=== PATIENT | female | born 1990 | race Caucasian/White ===

== ENCOUNTER 2022-11-29 07:14 | Outpatient (CLI) | payer OTHER, SELFPAY ==
--- NOTE | 2022-11-29 07:15 | CRLHL7_ITS ---
For Patients: As a result of the Cures Act, medical imaging exams and procedure reports are released immediately into your electronic medical record. You may view this report before your referring provider. If you have questions, please contact your health care provider. INDICATION: First trimester scan, establish dates. COMPARISON: None. TECHNIQUE: Real-time christina-scale imaging of the pelvis was performed. FINDINGS: Sonographic imaging demonstrates a single living intrauterine gestation. The embryo demonstrates a regular cardiac rate measuring 152 beats per minute. The embryo`s crown-rump length measurement of 3.6 cm corresponds to a gestational age of 10 weeks 3 days with a sonographic due date of 06/24/2023. There is a normal-appearing yolk sac. There are no gross abnormalities noted within the embryo at this early state of development. The gestational sac has a normal appearance. There is no evidence of a perigestational hemorrhage. The amount of fluid within the sac appears appropriate for gestational age. The cervix is closed. The myometrium appears normal. The ovaries are of normal size. Corpus luteal cyst left ovary. There are no suspicious fluid collections noted in the cul-de-sac. IMPRESSION: Normal first trimester OB ultrasound exam. Gestational age calculated at 10 weeks 3 days with a sonographic due date of 06/24/2023. Dictated by Jessee Pimentel MD @ 11/29/2022 9:03:26 AM (Electronically Signed)
== END 2022-11-29 07:15 | disposition home or self-care (01) ==
LOC: US 07:17
PROVIDERS: Visit Provider Registered Nurse
DX: Z34.81 Encounter for supervision of other normal pregnancy, first trimester (principal); Z3A.10 10 weeks gestation of pregnancy
CPT/HCPCS: 76801

== ENCOUNTER 2022-11-29 08:25 | Outpatient (CLI) | payer OTHER, SELFPAY ==
[2022-11-29 11:41] LABS: Hepatitis B Surface Antigen* Negative (Negative)
[2022-11-29 11:49] LABS: HIV 1/2/P24 Combo Screen* Negative (Negative)
[2022-11-29 11:58] LABS: Hepatitis C Virus Antibody* Negative (Negative)
[2022-11-29 12:54] LABS: Chlamydia DNA Amplified* Not Detected (No Detected); GC DNA Amplified* Not Detected (No Detected)
[2022-12-01 10:55] LABS: Rapid Plasma Reagin (RPR) Non Reactive (Non Reactive)
== END 2022-11-29 08:26 | disposition home or self-care (01) ==
PROVIDERS: Visit Provider Registered Nurse
DX: Z34.91 Encounter for supervision of normal pregnancy, unspecified, first trimester (principal); Z3A.10 10 weeks gestation of pregnancy
CPT/HCPCS: 86592; 86703; 86762; 86787; 86803; 86850; 86900; 86901; 87086; 87340; 87491; 87591

== ENCOUNTER 2023-02-07 09:11 | Outpatient (CLI) | payer OTHER, SELFPAY ==
--- NOTE | 2023-02-07 09:15 | CRLHL7_ITS ---
For Patients: As a result of the Century Cures Act, medical imaging exams and procedure reports are released immediately into your electronic medical record. You may view this report before your referring provider. If you have questions, please contact your health care provider. INDICATION: Evaluate anatomy. COMPARISON: 11/29/2022 TECHNIQUE: Real time christina scale imaging of the fetus was performed as well as color Doppler analysis of the umbilical vessels. FINDINGS: Sonographic imaging demonstrates a single living intrauterine gestation. Fetus demonstrates a regular cardiac rate of 161 beats per minute. Fetus has a variable position. The placenta lies anteriorly without evidence of placenta previa. The edge of the placenta is located 2.1 cm from the internal cervical os. Amniotic fluid volume appears normal. Single deepest vertical pocket: 4.2 cm. The cervix is closed and measures 3.6 cm in length. The composite ultrasound gestational age is calculated at 20 weeks 2 days with an estimated sonographic due date of 06/25/2023. The estimated weight is 367 grams which lies at the 73rd %. The following biometric measurements were obtained: Biparietal diameter: 4.5 cm/19 weeks 4 days 27th% Head circumference: 17.7 cm/20 weeks 1 day 42nd% Abdominal circumference: 16.5 cm/21 weeks 4 days 85th% Femur length: 3.2 cm/19 weeks 6 days 30th% The HC/AC ratio measures: 1.07 range (1.07-1.25) On anatomic survey, there is a normal appearance of the cerebral ventricles, cavum septi pellucidi, cisterna magna and cerebellum. The nose, lips, and facial profile appear normal. The cervical, thoracic and lumbar spine are well visualized and appear normal. The cardiac structures are incompletely evaluated due to position. The diaphragm and stomach appear normal. The kidneys and bladder also appear normal. There is a normal three-vessel cord and cord insertion site. The four extremities appear normal. IMPRESSION: Concordance of clinical and sonographic dating. Incomplete visualization of the four-chamber heart and outflow tracts due to position. The remainder of the anatomic survey is normal. Short-term follow-up suggested. Dictated by Jessee Pimentel MD @ 02/07/2023 12:19:26 PM (Electronically Signed)
== END 2023-02-07 09:12 | disposition home or self-care (01) ==
PROVIDERS: Visit Provider Obstetrics & Gynecology
DX: Z34.92 Encounter for supervision of normal pregnancy, unspecified, second trimester (principal); Z3A.20 20 weeks gestation of pregnancy
CPT/HCPCS: 76805; 76817

== ENCOUNTER 2023-02-21 07:14 | Outpatient (CLI) | payer OTHER, SELFPAY ==
--- NOTE | 2023-02-21 07:15 | CRLHL7_ITS ---
For Patients: As a result of the Century Cures Act, medical imaging exams and procedure reports are released immediately into your electronic medical record. You may view this report before your referring provider. If you have questions, please contact your health care provider. INDICATION: female. Follow up anatomic survey. Evaluate cardiac structures. TECHNIQUE: Transvaginal obstetrical ultrasound. FINDINGS: Single living intrauterine in breech presentation and transverse orientation. heart rate 145 beats per minute. Single deepest pocket measurement 4.5 cm which is normal. Anterior placenta. Closed cervix with its lower placental edge 5 cm away from the internal cervical os. The cardiac outflow tracts and 4 chamber cardiac view are within normal limits. IMPRESSION: Single living intrauterine in breech presentation. heart rate 145 beats per minute. Normal amniotic fluid. Four-chamber cardiac view is within normal limits. The outflow tracts are unremarkable. Dictated by Chong Lanza MD @ 02/21/2023 10:57:07 AM (Electronically Signed)
== END 2023-02-21 07:15 | disposition home or self-care (01) ==
PROVIDERS: Visit Provider Obstetrics & Gynecology
DX: Z34.90 Encounter for supervision of normal pregnancy, unspecified, unspecified trimester (principal)
CPT/HCPCS: 76816

== ENCOUNTER 2023-05-02 12:55 | Outpatient (CLI) | payer OTHER, SELFPAY ==
--- NOTE | 2023-05-02 13:00 | CRLHL7_ITS ---
For Patients: As a result of the Century Cures Act, medical imaging exams and procedure reports are released immediately into your electronic medical record. You may view this report before your referring provider. If you have questions, please contact your health care provider. INDICATION: Third trimester scan, evaluate growth. COMPARISON: 02/21/2023 TECHNIQUE: Real time christina scale imaging of the fetus was performed. FINDINGS: Sonographic imaging demonstrates a single living intrauterine gestation. Fetus demonstrates a regular cardiac rate of 142 beats per minute. Fetus has a vertex position. The placenta lies anteriorly. Amniotic fluid volume appears normal and there is a single deepest vertical pocket: 3.5 cm. The estimated weight is 2201gm which lies at the 81st %. On the prior OB ultrasound exam dated 02/07/2023 the estimated weight was at the 73rd%. The HC/AC ratio measures 1.00 range (0.96-1.11). BPD 38th percentile. HC 43rd percentile. AC 93rd percentile. FL 58th percentile. IMPRESSION: Sonographic gestational age 33 weeks 0 days and sonographic due date 06/20/2023. Sonographic age 6 days ahead of the clinical age. Estimated weight 81st percentile. Abdominal circumference 93rd percentile. Dictated by Jessee Pimentel MD @ 05/03/2023 6:56:53 AM (Electronically Signed)
== END 2023-05-02 12:56 | disposition home or self-care (01) ==
LOC: US 12:56
PROVIDERS: PCP Obstetrics & Gynecology; Visit Provider Obstetrics & Gynecology
DX: Z34.93 Encounter for supervision of normal pregnancy, unspecified, third trimester (principal); Z3A.32 32 weeks gestation of pregnancy
CPT/HCPCS: 76816

== ENCOUNTER 2023-05-26 08:46 | Outpatient (CLI) | payer OTHER, SELFPAY | END 2023-05-26 08:47 | disposition home or self-care (01) | LOC: NFLDREF 05-28 06:34 | PROVIDERS: PCP Obstetrics & Gynecology; Referring Provider Obstetrics & Gynecology; Visit Provider Obstetrics & Gynecology | DX: O99.013 Anemia complicating pregnancy, third trimester (principal); Z3A.35 35 weeks gestation of pregnancy | CPT/HCPCS: 87081; 87653 ==

== ENCOUNTER 2023-06-19 05:15 | Inpatient (IN) | payer OTHER, SELFPAY ==
[2023-06-19] VITALS (35 sets, daily range): BP systolic 125–151; BP diastolic 73–90; PULSE 73–103; RESP 16–18; TEMP 36.4–36.8; O2SAT 96–100; BMI 31.4
[2023-06-19 06:15] LABS: Basophils Percent Auto 0.3 % (0.0-3.0); Eosinophils Percent Auto 2.6 % (0.0-7.0); Hematocrit 34.1 % (33.0-51.0); Hemoglobin* 11.4 gm/dL (12.0-16.0); Immature Granulocytes Pct Auto 1.4 %; Lymphocytes Percent Auto 16.9 % (20-44); Mean Corpuscular HGB Conc 33 gm/dL (32-36); Mean Corpuscular Hemoglobin 30 pg (26-34); Mean Corpuscular Volume 88 fL (80-100); Monocytes Percent Auto 7.9 % (0.0-11.0); Neutrophils Percent Auto 70.9 % (42.0-72.0); Platelet Count* 244 K/uL (140-440); RDW Coefficient of Variation % 13.4 % (11.5-15.5); Red Blood Count 3.86 m/uL (4.00-5.20); White Blood Count* 11.96 K/uL (4.50-11.00)
[2023-06-19] MEDS: LACTATED RINGERS 1000 ML 1,000 ML 999 ML IV ×2 (06:17→06:57)
[2023-06-19] MEDS: CEFAZOLIN 2 GM INJ IVP (07:30)
--- NOTE | 2023-06-19 08:10 | W.ANESCHARGE ---
Anesthesia Charges Start Date/Time Anesthesia Start Date: 06/19/23 Anesthesia Start Time: 07:30 Stop Date/Time Anesthesia Stop Date: 06/19/23 Anesthesia Stop Time: 08:44
[2023-06-19 08:14] LABS: Slide Review Reflex No
[2023-06-19 08:16] LABS: Slide Review Acceptable Review (Acceptable)
[2023-06-19] MEDS: KETOROLAC 30 MG/ML inj IVP ×3 (08:25→20:45)
--- NOTE | 2023-06-19 08:32 | P.LDBA_ITS ---
Subjective History of Present Illness Time Seen by Provider: 07:00 Narrative: Patient is being admitted to Labor and Delivery for scheduled delivery. She is a 33 year old at weeks gestation. Her full history and physical was dictated by myself on 06/11/2023. Please see this for details. Patient arrived for her scheduled CD at 0530 and fetus was noted to have minimal variability and late decelerations during IV placement. Patient then had a vasovagal episode and fetus subsequently had a 7 minutes prolonged decel during her vasovagal episode. Patient was evaluated by MD speech therapist early intervention, Dr. Luz, and resuscitated appropriately. After the prolong deceleration, NST showed baseline of 160 bpm, moderate variability with accelerations and no deceleration. Decision was made to proceed with scheduled CD instead of urgent or emergent CD. Patient denies vaginal bleeding, leakage of fluid. Minimal contractions. She also denies CARDOZO, n/v, RUQ pain, or visual abnormalities Endorses normal movement. OB - Problem Based A/P Additional Plan (1) Previous delivery affecting : Status: Acute (2) : Status: Acute (3) Posttraumatic stress disorder: Status: Acute (4) Anxiety: Status: Acute Plan - Will proceed with scheduled CD and bilateral salpingectomy Delivery/Labor/Induction Plan Plan: Section OB Exam Physical Exam Vital signs: Pulse BP Pulse Ox 76 127/78 99 06/19/23 06:26 06/19/23 06:26 06/19/23 06:41 Narrative: Physical exam: General: No acute distress Psych: Alert and oriented x3, full affect HEENT: Normocephalic, atraumatic Lungs: Unlabored breathing Neuro: No focal deficit. Mentating appropriately Abdomen: Gravid. Soft, nontender, nondistended. No guarding or rebound Pelvic exam: Deferred
[2023-06-19] MEDS: LACTATED RINGERS 1000 ML 1,000 ML 125 ML IV (08:45)
--- NOTE | 2023-06-19 08:46 | W.ANESCHARGE ---
Anesthesia Charges Start Date/Time Anesthesia Start Date: 06/19/23 Anesthesia Start Time: 07:30 Stop Date/Time Anesthesia Stop Date: 06/19/23 Anesthesia Stop Time: 08:44
--- NOTE | 2023-06-19 08:46 | W.PM.NB ---
Nerve Block Nerve Block Time Seen by Provider: : Date Seen: 06/19/23 Type of block requested by surgeon for post-operative analgesia: TAP Side: bilateral Time out performed: Yes Verification of patient name: Yes Verification of date of : Yes Site marking: site marked Name of person performing procedure: [place] Continuous monitoring Was continuous monitoring of O2 sat, B/P, medical record transcriber, recorded every 15 minutes?: Yes Procedure Checklist: sterile prep, needles and gloves Ultrasound guided. Images saved: Yes Medications given in 5ml increments after negative aspiration: Marcaine %: 0.25 mL: 30 Needle gauge: 20 and Exparel mL: 10 Patient tolerated procedure well: Yes Additional comments: Needle noted adjacent to nerve Block Charges Block Charge (with Pro Fee): TAP Bilateral Use of Ultrasound Machine for Block: Yes- US Guidance/pain block
--- NOTE | 2023-06-19 08:55 | P.OBPRC_ITS ---
Procedure Time Seen by Provider: 07:30 Date of procedure: 06/19/23 Procedure Done: Global Will [facility] bill your pro fee for this procedure?: Yes Blood Loss Measurement Type: QBL Bakri Used: No Procedure Description: DELIVERY BY SECTION Date of Service: 06/19/2023 Delivery time: 756 Summary: Admitted for schedule repeat delivery and bilateral salpingectomy at 39.0 weeks, repeat lower uterine transverse section, bilateral salpingectomy, Pfannenstiel, Closed with sutures, QBL 348 cc, No complications, Findings: Normal uterus, bilateral ovaries and tubes 9/9, weight 3465 g. Primary Indication: 1. Previous delivery x1 2. Declined trial of labor after delivery 3. Undesired fertility Procedures: 1. Repeat delivery 2. Bilateral salpingectomy Specimens Removed: Placenta Bilateral fallopian tubes Surgeon: Abby Ramos MD Knitted Cloth Examiner: First darcy Cristina Anesthesia: Spinal, TAP Report: Prophylactic antibiotic, 2 g of Ancef was given before patient was taken to OR. After arrival to the operating room patient was placed in the supine position with left lateral tilt after administration of spinal anesthesia. Laparotomy A pfannenstiel incision was made through the anterior abdominal wall with #10 scalpel approximately 2 cm above the pubic symphysis. The incision was extended sharply with the #10 scalpel through the subcutaneous tissue to the level of fascia. The fascia was entered sharply with a #10 scalpel (Pfannenstiel) in the midline and extended in semi-elliptical fashion with Cornelius scissor. The underlying muscles were dissected off the overlying fascia by grasping the superior aspect of fascia with two braulio clamps and blunt dissection was used along the midline. The fascia was further from rectus muscle with Cornelius scissor and/or cautery. In similar fashion, the lower aspect of fascia was also grasped with two Braulio clamps and both blunt and sharp dissection was used to separate fascia from rectus muscle. The rectus muscles were in the midline bluntly with digits. The peritoneum was then entered bluntly. The peritoneal incision was then extended superiorly and inferiorly under direct visualization with care being taken to avoid bladder and bowel with electrocautery. No adhesions were noted. The peritoneal incision was enlarged bluntly by lateral traction from the surgeon's and first line supervisor's hand. Harry retractor was inserted into the abdomen. Delivery A bladder flap was not developed due to the bladder being low off the lower uterine segment with no tethering adhesions. A low transverse hysterotomy was made then with #10 scalpel and extended laterally and cephalad with fingers in a low transverse fashion with Manu Whiteside technique with care being taken to avoid injury to the fetus. The amniotic cavity (membrane) was then entered with spontaneous rupture of membrane, and the amniotic fluid was noted to be clear, fetus was delivered cephalic. With delivery of the baby, no extension was noted. Placenta was delivered spontaneously with steady traction on cord and manual separation of placenta from uterine wall. Closure Uterine cavity was cleaned after placental delivery with lap sponge x 2. The hysterotomy was closed in one layer with stitches using 0 Vicryl with continuous locking stitches. Hemostasis was achieved as needed with electrocautery. Attention was then turned towards the bilateral salpingectomy. The right fallopian tube was identified and grasped with 2 Shreyas clamps. The fallopian tube was removed by performing serial pedicles with the hand-held LigaSure dissecting forceps. The fallopian tube was removed from the uterus at the cornual aspect. Excellent hemostasis was noted. The left fallopian tube was identified, grasped, and removed in a similar manner. Again excellent hemostasis noted. The ovaries/tubes/uterine surface were evaluated. They were found to be normal. Harry retractor removed and hemostasis was confirmed again. Fascia was closed with running stitches using 0 PDS. Hemostasis was checked for and found to be adequate. Subcutaneous tissue irrigated. The subcutaneous layer closure was not needed due to being less than 2 cm. The skin was closed with monocryl subcuticular sutures . The incision was cleaned and covered with a compression bandage and the procedure considered terminate at this time. Intraoperative Complications: None QBL: 348 cc Uterotonics: 30 u of pitocin Disposition: The patient tolerated the procedure well. She was recovered in Obstetric PACU for close monitoring in stable condition, with a contracted uterus and normal transvaginal bleeding. The was sent to mother?s bedside/PACU. The placenta was not sent to pathology. [place] Infant total score - 1 minute: 9 total score - 5 minute: 9
[2023-06-19] MEDS: ACETAMINOPHEN 500 MG TABLET 1000 MG PO (19:15)
[2023-06-20] VITALS (9 sets, daily range): BP systolic 129–136; BP diastolic 87–94; PULSE 78–89; RESP 14–181; TEMP 36.8–36.9; O2SAT 96–98
[2023-06-20] MEDS: IBUPROFEN 600 MG TABLET PO ×2 (02:24→08:36)
[2023-06-20] MEDS: ACETAMINOPHEN 500 MG TABLET 1000 MG PO ×2 (05:15→13:29)
[2023-06-20 06:30] LABS: Hemoglobin* 9.3 gm/dL (12.0-16.0)
[2023-06-20 07:45] LABS: Hematocrit 28.5 % (33.0-51.0); Hemoglobin* 9.5 gm/dL (12.0-16.0); Mean Corpuscular HGB Conc 33 gm/dL (32-36); Mean Corpuscular Hemoglobin 30 pg (26-34); Mean Corpuscular Volume 89 fL (80-100); Platelet Count* 217 K/uL (140-440); White Blood Count* 12.14 K/uL (4.50-11.00)
[2023-06-20 08:01] LABS: Alanine Aminotransferase* 20 U/L (4-35); Aspartate Amino Transferase* 30 U/L (12-35); Blood Urea Nitrogen* 6 mg/dL (5-24); Creatinine* 0.5 mg/dL (0.5-1.5); Est. Creatinine Clearance* 151.22; Estimated Glomerular Filt Rate 128 ml/min
[2023-06-20 08:13] LABS: Slide Review Reflex No
--- NOTE | 2023-06-20 08:18 | P.DS_ITS ---
DS: Providers Provider Time Seen by Provider: 07:30 Date Seen: 06/20/23 Date of admission: 06/19/23 05:15 Primary care physician: Serenity Jj MD Admitting Clinician: Abby Ramos MD Attending Physician on discharge: Abby Ramos MD Date of Discharge: 06/20/23 DS: Diagnosis Discharge Diagnosis (1) Status post repeat low transverse section: Status: Acute (2) Lactating mother: Status: Acute (3) Posttraumatic stress disorder: Status: Acute Exam Narrative: Exam Narrative: VSS. ?Afebrile GENERAL APPEARANCE: ?normal affect, alert, no distress MOOD: ?appropriate HEENT: normocephalic, neck supple, full ROM CHEST: ?Symmetrical chest wall movement. ?Normal respiratory effort. ?Clear to auscultation HEART: ?regular rate and rhythm ABDOMEN: ?soft, non-tender. Uterine fundus is firm, 2 below Umbilicus, Midline and is appropriate for the stage of recovery. ?Bowel sounds present, but hypoactive. EXTREMITIES: ?normal and +1 edema SKIN: warm, dry. ?Dressing on, clean/dry/intact. ?No signs of infection noted. Const: Vital Signs, click to edit/add: Vital Signs - 24 hr 06/19/23 08:45 06/19/23 08:50 06/19/23 08:55 Temperature 98 F Pulse Rate 80 103 H 90 Pulse Rate [Pulse Oximeter] Respiratory Rate 18 18 18 Blood Pressure 131/80 129/84 133/86 Blood Pressure [Ri ght Arm] Pulse Oximetry 98 98 96 Oxygen Delivery Me thod Room Air Room Air Room Air 06/19/23 09:00 06/19/23 09:05 06/19/23 09:10 Temperature 97.8 F Pulse Rate 92 87 91 Pulse Rate [Pulse Oximeter] Respiratory Rate 18 18 18 Blood Pressure 127/82 132/85 130/88 Blood Pressure [Ri ght Arm] Pulse Oximetry 97 97 96 Oxygen Delivery Me thod Room Air Room Air Room Air 06/19/23 09:15 06/19/23 09:28 06/19/23 09:30 Temperature 97.8 F Pulse Rate Pulse Rate [Pulse Oximeter] 90 82 Respiratory Rate 18 18 18 Blood Pressure Blood Pressure [Ri ght Arm] 137/82 151/77 H Pulse Oximetry 96 97 Oxygen Delivery Me thod 06/19/23 09:45 06/19/23 10:00 06/19/23 10:08 Temperature Pulse Rate Pulse Rate [Pulse Oximeter] 78 78 Respiratory Rate 18 18 18 Blood Pressure Blood Pressure [Ri ght Arm] 140/80 H 130/80 Pulse Oximetry 99 99 Oxygen Delivery Me thod 06/19/23 10:15 06/19/23 10:30 06/19/23 10:45 Temperature Pulse Rate Pulse Rate [Pulse Oximeter] 91 96 88 Respiratory Rate 18 18 18 Blood Pressure Blood Pressure [Ri ght Arm] 141/75 H 129/74 125/76 Pulse Oximetry 98 98 99 Oxygen Delivery Me thod 06/19/23 11:00 06/19/23 11:08 06/19/23 12:00 Temperature 97.6 F 98.3 F Pulse Rate Pulse Rate [Pulse Oximeter] 96 101 H Respiratory Rate 18 18 18 Blood Pressure Blood Pressure [Ri ght Arm] 127/73 127/83 Pulse Oximetry 99 98 Oxygen Delivery Me thod Room Air 06/19/23 12:08 06/19/23 13:08 06/19/23 15:00 Temperature Pulse Rate Pulse Rate [Pulse Oximeter] Respiratory Rate 18 18 16 Blood Pressure Blood Pressure [Ri ght Arm] Pulse Oximetry Oxygen Delivery Me thod 06/19/23 16:00 06/19/23 17:00 06/19/23 17:00 Temperature 98.3 F Pulse Rate Pulse Rate [Pulse Oximeter] 88 Respiratory Rate 16 16 16 Blood Pressure Blood Pressure [Ri ght Arm] 131/84 Pulse Oximetry 100 Oxygen Delivery Me thod Room Air 06/19/23 19:00 06/19/23 19:17 06/19/23 20:00 Temperature 98.3 F Pulse Rate Pulse Rate [Pulse Oximeter] 89 Respiratory Rate 16 16 16 Blood Pressure Blood Pressure [Ri ght Arm] 127/83 Pulse Oximetry 97 Oxygen Delivery Me thod Room Air 06/19/23 21:00 06/19/23 22:00 06/19/23 23:00 Temperature Pulse Rate Pulse Rate [Pulse Oximeter] Respiratory Rate 16 16 16 Blood Pressure Blood Pressure [Ri ght Arm] Pulse Oximetry Oxygen Delivery Me thod 06/19/23 23:25 06/20/23 00:00 06/20/23 01:00 Temperature 98.3 F Pulse Rate Pulse Rate [Pulse Oximeter] 88 Respiratory Rate 16 14 16 Blood Pressure Blood Pressure [Ri ght Arm] 134/90 H Pulse Oximetry 97 Oxygen Delivery Me thod Room Air 06/20/23 02:00 06/20/23 03:00 06/20/23 03:00 Temperature 98.3 F Pulse Rate Pulse Rate [Pulse Oximeter] 89 Respiratory Rate 18 15 18 Blood Pressure Blood Pressure [Ri ght Arm] 134/94 H Pulse Oximetry 96 Oxygen Delivery Me thod Room Air 06/20/23 03:30 06/20/23 03:30 06/20/23 03:30 Temperature 98.3 F 98.4 F Pulse Rate Pulse Rate [Pulse Oximeter] 89 85 Respiratory Rate 16 16 16 Blood Pressure Blood Pressure [Ri ght Arm] 134/94 H 136/94 H Pulse Oximetry 96 97 Oxygen Delivery Me thod Room Air Room Air 06/20/23 04:00 06/20/23 05:00 Temperature Pulse Rate Pulse Rate [Pulse Oximeter] Respiratory Rate 16 16 Blood Pressure Blood Pressure [Ri ght Arm] Pulse Oximetry Oxygen Delivery Me thod OB - DS: Summary Hospital Course Hospital Course: Serenity is a 33 y.o. G 5 P 2 who was admitted to [facility] for a repeat . ?She had an uncomplicated . ? The patient feels well. ?The pain is well controlled with current medications. ?She has no new complaints. ?She is breast feeding and reports things are going well.? the patient has done well.? Vitals have been stable, however she has had a few mildly elevated blood pressures.? She has remained afebrile.? Has a good appetite, is tolerating a general diet. ?She is voiding without difficulty.? She is passing gas and has not had a bowel movement.? She is ambulating and denies any dizziness.? Has Small amount of rubra lochia. She had a tubal ligation for prevention. She is requesting an early discharge at 24 hours. She has been switched over to oral pain medication and states pain is well controlled. She is aware this may increase as some of the anesthesia wears off. Problems: Gestational hypertension. Consulted Dr. Ramos. She may be discharged homed with follow up if labs WNL. plan: Preeclampsia labs collected, WNL. Discharge home with baby. Follow up in 3-5 days for a blood pressure check, 2 weeks for an incision check and 6 weeks. , may follow up with if needed Acute anemia, continue iron supplementation every other day for 6 weeks Continue to check blood pressures twice a day, and call if elevated or symptoms occur. Hx of anxiety & post traumatic stress -currently in therapy -no medications at this time, stable without Peripartum Data Infant delivery method: Repeat Section Procedures: Procedures Operation Date: 06/19/23 07:15 Actual Procedure Side Surgeon p Repeat Section with Bilateral Tubal Ligation Abby Ramos MD Procedures: tubal ligation/salpingectomy complications: other (Gestational hypertension) [place] Infant Gender: Female Infant Discharge Plan: Home Status at Discharge Functional status at discharge: independent ambulation Overall status at discharge: patient is progressing back to baseline Time Spent with Patient Time attestation: Total time spent providing and/or coordinating discharge services: Time spent: Less than 30 minutes Discharge Plan Discharge Disposition: Home, Self-Care Date of Admission: 06/19/23 05:15 Attending Provider on Discharge: Dinora Quinteros Primary Care Provider: Serenity Jj Condition: Stable Anticipated Discharge Date/Time: 06/20/23 10:00 Discharge Medications: New docusate sodium 100 mg Capsule 100 mg PO BID PRNQty: 100 0RF Rx Instructions: Take 1 cap 1-2 times a day as needed for constipation ibuprofen 600 mg Tablet 600 mg PO Q6H PRN (Reason: Pain) Qty: 60 0RF oxycodone 5 mg Tablet 5 - 10 mg PO Q4H PRN (Reason: Pain) Qty: 20 0RF Continued ferrous sulfate 27 mg iron tablet 27 mg PO .MWF Qty: 30 2RF prenat.vits,benito,[id number] Tablet 1 tab PO QDAY triamcinolone acetonide 0.5 % ointment 1 applic topical BID PRN (Reason: itching) Qty: 15 0RF Discharge Orders: Discharge Order (Routine); Ordered 06/20/23 Ordered By: Dinora Quinteros Patient Education: OB Over the Counter Medication Information, OB /Breast Feeding Additional Instructions: Check blood pressure twice a day. Call if 140/90 or higher, or if symptoms occur (headache, vision changes, pain on your right side where your ribs end) Follow up visit in 3-5 days for a blood pressure check. Can be an RN visit Follow up in 2 weeks for an incision check and 6 weeks. Activity Level: Activity as Tolerated Discharge Diet: Regular Follow Up Appointments: Serenity Jj MD [Primary Care Provider] - Forms: [employer] Info Instructions
[2023-06-20] MEDS: DOCUSATE SODIUM 100 MG CAPSULE PO (08:37)
[2023-06-20] MEDS: FERROUS SULFATE 325 MG TABLET PO (08:38)
[2023-06-20] MEDS: OXYCODONE 5 MG TABLET PO (09:22)
== END 2023-06-20 13:35 | disposition home or self-care (01) | DRG 784 ==
PROVIDERS: Advanced Practice Midwife; Admitting Provider Obstetrics & Gynecology; PCP Obstetrics & Gynecology; Visit Provider Obstetrics & Gynecology
PROC: 10D00Z1 Extraction of Products of Conception, Low, Open Approach (ICD-10-PCS; CPT 59514; principal; 2023-06-19 07:15)
DX: O34.211 Maternal care for low transverse scar from previous cesarean delivery (principal); D62 Acute posthemorrhagic anemia; O76 Abnormality in fetal heart rate and rhythm complicating labor and delivery; R55 Syncope and collapse; O99.344 Other mental disorders complicating childbirth; F43.10 Post-traumatic stress disorder, unspecified; F41.9 Anxiety disorder, unspecified; O90.81 Anemia of the puerperium; Z3A.39 39 weeks gestation of pregnancy; Z37.0 Single live birth; G89.18 Other acute postprocedural pain
CPT/HCPCS: 01961; 36415; 51701; 64488; 76942; 82565; 84450; 84460; 84520; 85018; 85025; 85027; 86850; 86900; 86901; 88302; A9270; C9290; J0665; J0690; J1885; J2274; J2371; J2405; J2590; J2704; J7120

== ENCOUNTER 2025-04-15 10:00 | Outpatient (CLI) | payer OTHER, SELFPAY | END 2025-04-15 10:01 | disposition home or self-care (01) | PROVIDERS: Visit Provider Family Medicine | DX: R10.13 Epigastric pain (principal) | CPT/HCPCS: 80053; 80061; 83690 ==